=== PATIENT | male | born 1960 ===

== ENCOUNTER 2020-12-21 14:58 | Inpatient (IN) | payer BC, OTHER ==
[~2020-12-21] VITALS: Ht 182.9 cm; Wt 74.8 kg
--- NOTE | 2020-12-21 15:04 | NUR ---
PT IS IN ROOM #1B. DR QUILES EVALUATED THE PT.
[2020-12-21] MEDS ORDERED: LISINOPRIL (15:05)
[2020-12-21] MEDS ORDERED: NEOMY/BACITRA/POLYMYXIN B OINT UD PACKET TP ONE ×2 (15:30→16:48)
[2020-12-21] MEDS ORDERED: IV NORMAL SALINE 1000 ML BAG IV ONE (15:30)
[2020-12-21 15:52] LABS: MEAN CORPUSCULAR HEMOGLOBIN 38.8 uug (23.8-33.4); MEAN CORPUSCULAR VOLUME 109.9 fL (73.0-96.2); PLATELET COUNT (AUTO) 138 K/uL (152-348)
[2020-12-21 16:03] LABS: CREATININE 0.9 mg/dL (0.6-1.3); POTASSIUM 3.4 mmol/L (3.5-5.1)
[2020-12-21 16:09] LABS: BILIRUBIN,DIRECT 0.2 mg/dL (0.0-0.2); BILIRUBIN,TOTAL 0.5 mg/dL (0.2-1.0); TOTAL PROTEIN, SERUM 6.4 g/dL (6.4-8.2)
[2020-12-21] MEDS ORDERED: POTASSIUM CHLORIDE 20 MEQ TAB.PRT.SR PO ONE (16:45)
[2020-12-21] MEDS ORDERED: POTASSIUM CHLORIDE 20 MEQ TAB.PRT.SR ONE (16:47)
[2020-12-21] MEDS: MAGNESIUM SULFATE/D5W 100 ML IV SCH ×5 (17:38→22:15)
[2020-12-21] MEDS ORDERED: ACETAMINOPHEN ES 500 MG TABLET PO ONE (17:45)
[2020-12-21] MEDS ORDERED: MAGNESIUM SULFATE/D5W 200 ML ONE (17:46)
[2020-12-21] MEDS ORDERED: ACETAMINOPHEN ES 500 MG TABLET ONE (17:47)
[2020-12-21] MEDS ORDERED: MAGNESIUM HYDROXIDE 30 ML LIQUID UDC PO PRN (19:00)
[2020-12-21] MEDS ORDERED: CHLORDIAZEPOXIDE HCL 25 MG CAPSULE PO PRN (19:00)
[2020-12-21] MEDS ORDERED: Z GUARD REMEDY PASTE 57 GM TUBE TOP PRN (19:00)
[2020-12-21] MEDS ORDERED: ACETAMINOPHEN 325 MG TABLET PO PRN (19:00)
[2020-12-21] MEDS ORDERED: HYDROCODONE/APAP 5-325MG TABLET PO PRN (19:00)
[2020-12-21] MEDS ORDERED: ONDANSETRON 4 MG/2 ML VIAL IV PRN (19:00)
--- NOTE | 2020-12-21 23:20 | NUR ---
REPORT WAS GIVEN TO [employer]C[facility] [employer]IC[employer] SPECIALIST. PT WAS TRANSFERED TO ROOM #301A.
--- NOTE | 2020-12-21 23:55 | NUR ---
ADMITTED THIS 60 YEAR OLD MALE FROM ER,VIA GURNEY,WITH DIAGNOSIS OF S/P FALL.ALERT,ORIENTEDX3, FACIAL BRUISING NOTED , LACERATION OF NOSE SEEN THRU X RAY ,TRANSFERRED TO BED W/ 2 MEN ASSIST.ADMISSION CARE DONE. COVID NEGATIVE,IV SITE G 20 ON RIGHT ANTE CUBITAL AREA.SKILLED ASSESSMENT DONE.,
[2020-12-22] VITALS (12 sets, daily range): BP systolic 96–161; BP diastolic 54–99
[2020-12-22] MEDS: HYDROMORPHONE 1 MG/1 ML DISP.SYRIN IV PRN ×2 (04:32→21:35)
[2020-12-22] MEDS: IV D5 1/2 NS 1000 ML 1,000 ML IV PRN ×2 (04:33→23:20)
--- NOTE | 2020-12-22 04:33 | NUR ---
IVF INFUSING ORDERED, MEDICATED WITH DLIAUDID 1 MG IVP AND TOLERATED WELL,NEEDS ATTENDED TO.
--- NOTE | 2020-12-22 04:53 | NUR ---
BP ELEVATED 161/88, NOTIFIED, HYDRALAZINE 25 MG P.O.
[2020-12-22] MEDS ORDERED: hydrALAZINE HCL 25 MG TABLET PO SCH (05:30)
[2020-12-22] MEDS ORDERED: CHLORDIAZEPOXIDE HCL 25 MG CAPSULE PO PRN (06:30)
[2020-12-22 07:07] LABS: PLATELET COUNT (AUTO) 112 K/uL (152-348)
[2020-12-22 07:13] LABS: MEAN CORPUSCULAR HEMOGLOBIN 38.7 uug (23.8-33.4); MEAN CORPUSCULAR VOLUME 110.2 fL (73.0-96.2)
[2020-12-22 08:10] LABS: BILIRUBIN,DIRECT 0.3 mg/dL (0.0-0.2); BILIRUBIN,TOTAL 0.9 mg/dL (0.2-1.0); CREATININE 0.8 mg/dL (0.6-1.3); MAGNESIUM 2.1 mg/dL (1.8-2.4); PHOSPHOROUS 3.6 mg/dL (2.5-4.9); POTASSIUM 3.6 mmol/L (3.5-5.1); TOTAL PROTEIN, SERUM 5.7 g/dL (6.4-8.2)
[2020-12-22] MEDS: PANTOPRAZOLE SODIUM 40 MG VIAL IV SCH (08:21)
[2020-12-22] MEDS: LISINOPRIL 10 MG TABLET PO SCH (08:21)
[2020-12-22 08:31] LABS: HEMATOCRIT 20.4 % (36.7-47.1)
[2020-12-22] MEDS: LORAZEPAM 2 MG/1 ML VIAL IV PRN ×2 (09:03→23:14)
[2020-12-22] MEDS ORDERED: DIAZEPAM 5 MG TABLET PO PRN (11:00)
--- NOTE | 2020-12-22 11:13 | NUR ---
heamoglobin reported to attending with order to give one unit of PRBC, order noted
[2020-12-22 11:34] LABS: LYMPHOCYTES % (MANUAL) 13 % (20-40); MONOCYTES % (MANUAL) 11 % (2-10); NEUTROPHILS % (MANUAL) 76 % (42-75)
--- NOTE | 2020-12-22 13:52 | NUR ---
Patient alert, oriented x3, no sob, resp even nonlabored,skin warm and dry to touch, noted with some tremors, ativan administered as ordered, effective, no acute distress noted.
--- NOTE | 2020-12-22 17:09 | NUR ---
PRBCs transfusing, patient is tolerating well, no reactions noted
[2020-12-23 04:00] VITALS: BP 147/77
--- NOTE | 2020-12-23 07:30 | NUR ---
Received awake, alert and oriented. Hob elevated. Iv intact. Bruising on the face and arms noted. Denies pain. He said he wants to rest a little. Safety measures in place. Kept comfortable. Call light within reach.
[2020-12-23] MEDS: LISINOPRIL 10 MG TABLET PO SCH (08:30)
[2020-12-23] MEDS: PANTOPRAZOLE SODIUM 40 MG VIAL IV SCH (08:30)
--- NOTE | 2020-12-23 11:30 | NUR ---
Went to patient's room and found patient already dressed with his own clothes. Patient had cut his own Iv in half. Patient verbalized he wants to go ama. Explained to patient risks of him leaving and benefits of staying and continuing treatment. Patient is adamant. Informed Tomasa Miramontes NP.
--- NOTE | 2020-12-23 11:35 | NUR ---
Found spots of blood on patient's bathroom floor. Patient had cut his IV in half and backflow from his IV site was dripping while he was getting dressed.
[2020-12-23 11:43] LABS: POTASSIUM 3.6 mmol/L (3.5-5.1)
--- NOTE | 2020-12-23 11:45 | NUR ---
Patient signed ama form. IV access removed. Refused to wait for lunch or take a sandwich. Says he doesn't need anything. Noted patient's hands shaking when he signed ama paper. Tried to convince him to continue his treatment but he said no.
--- NOTE | 2020-12-23 11:50 | NUR ---
Patient brought downstairs via wheelchair. He said he will call [employer]. Asked if someone can pick him up he said he lives alone. [employer] Fe aware.
[2020-12-23 11:52] VITALS: BP 111/78
[2020-12-23 11:54] LABS: HEMATOCRIT 21.4 % (36.7-47.1); MEAN CORPUSCULAR HEMOGLOBIN 37.4 uug (23.8-33.4); MEAN CORPUSCULAR VOLUME 105.4 fL (73.0-96.2); PLATELET COUNT (AUTO) 139 K/uL (152-348)
== END 2020-12-23 11:45 | disposition left against medical advice (07) | DRG 155 ==
LOC: ER 15:00 → TELE3 23:11 → MEDSURG3 12-22 00:39
PROVIDERS: ADMIT Nurse Practitioner Acute Care; ATTEND Nurse Practitioner Acute Care
PROC: 30233N1 Transfusion of Nonautologous Red Blood Cells into Peripheral Vein, Percutaneous Approach (ICD-10-PCS; principal; 2020-12-22)
DX: S02.2XXA Fracture of nasal bones, initial encounter for closed fracture (principal); K92.2 Gastrointestinal hemorrhage, unspecified; S22.32XA Fracture of one rib, left side, initial encounter for closed fracture; W19.XXXA Unspecified fall, initial encounter; E87.6 Hypokalemia; I10 Essential (primary) hypertension; Z20.822 Contact with and (suspected) exposure to COVID-19; R74.01 Elevation of levels of liver transaminase levels; R29.6 Repeated falls; F10.20 Alcohol dependence, uncomplicated; Y93.9 Activity, unspecified; Y92.009 Unspecified place in unspecified non-institutional (private) residence as the place of occurrence of the external cause; D69.6 Thrombocytopenia, unspecified; D50.0 Iron deficiency anemia secondary to blood loss (chronic)
CPT/HCPCS: 36415; 70030-TC; 70450; 70480; 71045; 71111; 72125; 72170; 83690; 83735; 84100; 85025; 86850; 86900; 86901; 86920; 93005; 97161; A4663; A9150; C9113; G0378; J1170; J2060; J3475; J3490; J7030; J7040; P9016; P9021